=== PATIENT | male | born 1945 | race Caucasian/White ===

== ENCOUNTER → 2023-06-16 12:10 | Outpatient (REF) | payer MEDICARE, OTHER, SELFPAY ==
[2023-06-16 13:08] LABS: INR 2.15; PT 24.2 Sec (11.4-14.6)
== END ==
LOC: REG 12:10
PROVIDERS: ATTENDING PHYSICIAN Internal Medicine Cardiovascular Disease; FAMILY PHYSICIAN Family Medicine
DX: I48.19 Other persistent atrial fibrillation (principal)
CPT/HCPCS: 36415; 85610

== ENCOUNTER → 2023-07-14 11:57 | Outpatient (REF) | payer MEDICARE, OTHER, SELFPAY ==
[2023-07-14 13:35] LABS: INR 2.37; PT 26.2 Sec (11.4-14.6)
== END ==
LOC: REG 11:57
PROVIDERS: ATTENDING PHYSICIAN Internal Medicine Cardiovascular Disease; FAMILY PHYSICIAN Family Medicine
DX: I48.19 Other persistent atrial fibrillation (principal)
CPT/HCPCS: 36415; 85610

== ENCOUNTER → 2023-08-11 11:53 | Outpatient (REF) | payer MEDICARE, OTHER, SELFPAY ==
[2023-08-11 12:40] LABS: INR 2.68; PT 28.8 Sec (11.4-14.6)
== END ==
LOC: REG 11:53
PROVIDERS: ATTENDING PHYSICIAN Internal Medicine Cardiovascular Disease; FAMILY PHYSICIAN Family Medicine
DX: I48.19 Other persistent atrial fibrillation (principal)
CPT/HCPCS: 36415; 85610

== ENCOUNTER → 2023-08-25 12:34 | Outpatient (REF) | payer MEDICARE, OTHER, SELFPAY | LOC: RAD 12:34 | PROVIDERS: ATTENDING PHYSICIAN Internal Medicine Critical Care Medicine; FAMILY PHYSICIAN Family Medicine | DX: J44.9 Chronic obstructive pulmonary disease, unspecified (principal); R93.89 Abnormal findings on diagnostic imaging of other specified body structures; R91.8 Other nonspecific abnormal finding of lung field | CPT/HCPCS: 71250 ==

== ENCOUNTER → 2023-09-08 11:50 | Outpatient (REF) | payer MEDICARE, OTHER, SELFPAY ==
[2023-09-08 13:24] LABS: INR 2.32; PT 25.8 Sec (11.4-14.6)
== END ==
LOC: REG 11:50
PROVIDERS: ATTENDING PHYSICIAN Internal Medicine Cardiovascular Disease; FAMILY PHYSICIAN Family Medicine
DX: I48.21 Permanent atrial fibrillation (principal)
CPT/HCPCS: 36415; 85610

== ENCOUNTER → 2023-10-06 11:45 | Outpatient (REF) | payer MEDICARE, OTHER, SELFPAY ==
[2023-10-06 12:35] LABS: INR 2.67; PT 28.3 Sec (11.4-14.6)
== END ==
LOC: REG 11:45
PROVIDERS: ATTENDING PHYSICIAN Internal Medicine Cardiovascular Disease; FAMILY PHYSICIAN Family Medicine
DX: I48.19 Other persistent atrial fibrillation (principal)
CPT/HCPCS: 36415; 85610

== ENCOUNTER → 2023-10-19 10:50 | Outpatient (REF) | payer MEDICARE, OTHER, SELFPAY | LOC: RAD 10:50 | PROVIDERS: ATTENDING PHYSICIAN Surgery Vascular Surgery; FAMILY PHYSICIAN Family Medicine | DX: I71.43 Infrarenal abdominal aortic aneurysm, without rupture (principal) | CPT/HCPCS: 76770 ==

== ENCOUNTER → 2023-11-03 11:31 | Outpatient (REF) | payer MEDICARE, OTHER, SELFPAY ==
[2023-11-03 13:36] LABS: INR 2.31; PT 25.7 Sec (11.4-14.6)
== END ==
LOC: RAD 11:31
PROVIDERS: ATTENDING PHYSICIAN Internal Medicine Cardiovascular Disease; FAMILY PHYSICIAN Family Medicine
DX: I48.19 Other persistent atrial fibrillation (principal)
CPT/HCPCS: 36415; 85610

== ENCOUNTER → 2023-12-01 12:17 | Outpatient (REF) | payer MEDICARE, OTHER, SELFPAY ==
[2023-12-01 13:28] LABS: INR 1.97; PT 22.7 Sec (11.4-14.6)
== END ==
LOC: REG 12:17
PROVIDERS: ATTENDING PHYSICIAN Internal Medicine Cardiovascular Disease; FAMILY PHYSICIAN Family Medicine
DX: I48.19 Other persistent atrial fibrillation (principal)
CPT/HCPCS: 36415; 85610

== ENCOUNTER → 2023-12-29 11:47 | Outpatient (REF) | payer MEDICARE, OTHER, SELFPAY ==
[2023-12-29 12:34] LABS: INR 2.41; PT 26.6 Sec (11.4-14.6)
== END ==
LOC: REG 11:47
PROVIDERS: ATTENDING PHYSICIAN Internal Medicine Cardiovascular Disease; FAMILY PHYSICIAN Family Medicine
DX: I48.19 Other persistent atrial fibrillation (principal)
CPT/HCPCS: 36415; 85610

== ENCOUNTER → 2024-01-26 12:21 | Outpatient (REF) | payer MEDICARE, OTHER, SELFPAY ==
[2024-01-26 15:13] LABS: PT 31.5 Sec (11.4-14.6)
== END ==
LOC: REG 12:21
PROVIDERS: ATTENDING PHYSICIAN Internal Medicine Cardiovascular Disease; FAMILY PHYSICIAN Family Medicine
DX: I48.19 Other persistent atrial fibrillation (principal)
CPT/HCPCS: 36415; 85610

== ENCOUNTER → 2024-02-23 11:19 | Outpatient (REF) | payer MEDICARE, OTHER, SELFPAY ==
[2024-02-23 13:51] LABS: INR 2.83; PT 30.2 Sec (11.4-14.6)
== END ==
LOC: REG 11:19
PROVIDERS: ATTENDING PHYSICIAN Internal Medicine Cardiovascular Disease; FAMILY PHYSICIAN Family Medicine
DX: I48.19 Other persistent atrial fibrillation (principal)
CPT/HCPCS: 36415; 85610

== ENCOUNTER → 2024-03-22 11:57 | Outpatient (REF) | payer MEDICARE, OTHER, SELFPAY ==
[2024-03-22 13:23] LABS: INR 1.73; PT 20.7 Sec (11.4-14.6)
== END ==
LOC: REG 11:57
PROVIDERS: ATTENDING PHYSICIAN Internal Medicine Cardiovascular Disease; FAMILY PHYSICIAN Family Medicine
DX: I48.19 Other persistent atrial fibrillation (principal)
CPT/HCPCS: 36415; 85610

== ENCOUNTER → 2024-03-29 11:57 | Outpatient (REF) | payer MEDICARE, OTHER, SELFPAY ==
[2024-03-29 12:52] LABS: PT 23.2 Sec (11.4-14.6)
== END ==
LOC: REG 11:57
PROVIDERS: ATTENDING PHYSICIAN Internal Medicine Cardiovascular Disease
DX: I48.19 Other persistent atrial fibrillation (principal)
CPT/HCPCS: 36415; 85610

== ENCOUNTER → 2024-04-06 11:48 | Outpatient (REF) | payer MEDICARE, OTHER, SELFPAY ==
[2024-04-06 15:28] LABS: INR 2.83; PT 29.7 Sec (11.4-14.6)
== END ==
LOC: REG 11:48
PROVIDERS: ATTENDING PHYSICIAN Internal Medicine Cardiovascular Disease
DX: I48.91 Unspecified atrial fibrillation (principal)
CPT/HCPCS: 36415; 85610

== ENCOUNTER → 2024-04-12 12:26 | Outpatient (REF) | payer MEDICARE, OTHER, SELFPAY ==
[2024-04-12 14:04] LABS: INR 2.16; PT 24.6 Sec (11.4-14.6)
== END ==
LOC: REG 12:26
PROVIDERS: ATTENDING PHYSICIAN Internal Medicine Cardiovascular Disease; FAMILY PHYSICIAN Family Medicine
DX: I48.19 Other persistent atrial fibrillation (principal)
CPT/HCPCS: 36415; 85610

== ENCOUNTER → 2024-04-19 11:47 | Outpatient (REF) | payer MEDICARE, OTHER, SELFPAY ==
[2024-04-19 13:10] LABS: INR 2.46; PT 27.1 Sec (11.4-14.6)
== END ==
LOC: REG 11:47
PROVIDERS: ATTENDING PHYSICIAN Internal Medicine Cardiovascular Disease; FAMILY PHYSICIAN Physician Assistant Medical
DX: I48.19 Other persistent atrial fibrillation (principal)
CPT/HCPCS: 36415; 85610

== ENCOUNTER → 2024-05-08 09:21 | Outpatient (REF) | payer MEDICARE, OTHER, SELFPAY | LOC: DHVS 09:21 | PROVIDERS: ATTENDING PHYSICIAN Surgery Vascular Surgery; FAMILY PHYSICIAN Family Medicine | DX: I71.43 Infrarenal abdominal aortic aneurysm, without rupture (principal) | CPT/HCPCS: 76770 ==

== ENCOUNTER → 2024-05-17 11:16 | Outpatient (REF) | payer MEDICARE, OTHER, SELFPAY ==
[2024-05-17 12:46] LABS: INR 2.14; PT 24.4 Sec (11.4-14.6)
== END ==
LOC: REG 11:16
PROVIDERS: ATTENDING PHYSICIAN Internal Medicine Cardiovascular Disease; FAMILY PHYSICIAN Family Medicine
DX: I48.19 Other persistent atrial fibrillation (principal)
CPT/HCPCS: 36415; 85610

== ENCOUNTER → 2024-06-14 14:26 | Outpatient (REF) | payer MEDICARE, OTHER, SELFPAY ==
[2024-06-14 15:32] LABS: INR 2.45
== END ==
LOC: REG 14:26
PROVIDERS: ATTENDING PHYSICIAN Internal Medicine Cardiovascular Disease; FAMILY PHYSICIAN Family Medicine
DX: I48.21 Permanent atrial fibrillation (principal)
CPT/HCPCS: 36415; 85610

== ENCOUNTER → 2024-07-12 12:00 | Outpatient (REF) | payer MEDICARE, OTHER, SELFPAY ==
[2024-07-12 13:43] LABS: PT 26.6 Sec (11.4-14.6)
== END ==
LOC: REG 12:00
PROVIDERS: ATTENDING PHYSICIAN Internal Medicine Cardiovascular Disease; FAMILY PHYSICIAN Family Medicine
DX: I48.19 Other persistent atrial fibrillation (principal)
CPT/HCPCS: 36415; 85610

== ENCOUNTER → 2024-08-09 11:35 | Outpatient (REF) | payer MEDICARE, OTHER, SELFPAY ==
[2024-08-09 12:10] LABS: INR 2.12; PT 24.2 Sec (11.4-14.6)
== END ==
LOC: REG 11:35
PROVIDERS: ATTENDING PHYSICIAN Internal Medicine Cardiovascular Disease
DX: I48.21 Permanent atrial fibrillation (principal)
CPT/HCPCS: 36415; 85610

== ENCOUNTER → 2024-08-22 10:58 | Outpatient (REF) | payer MEDICARE, OTHER, SELFPAY | LOC: RAD 10:58 | PROVIDERS: ATTENDING PHYSICIAN Internal Medicine Critical Care Medicine; FAMILY PHYSICIAN Family Medicine | DX: R91.8 Other nonspecific abnormal finding of lung field (principal) | CPT/HCPCS: 71250 ==

== ENCOUNTER → 2024-09-06 11:45 | Outpatient (REF) | payer MEDICARE, OTHER, SELFPAY ==
[2024-09-06 12:31] LABS: INR 3.15; PT 32.7 Sec (11.4-14.6)
== END ==
LOC: REG 11:45
PROVIDERS: ATTENDING PHYSICIAN Internal Medicine Cardiovascular Disease; FAMILY PHYSICIAN Family Medicine
DX: I48.21 Permanent atrial fibrillation (principal)
CPT/HCPCS: 36415; 85610

== ENCOUNTER → 2024-09-13 11:37 | Outpatient (REF) | payer MEDICARE, OTHER, SELFPAY ==
[2024-09-13 13:27] LABS: INR 2.04; PT 23.5 Sec (11.4-14.6)
== END ==
LOC: REG 11:37
PROVIDERS: ATTENDING PHYSICIAN Internal Medicine Cardiovascular Disease
DX: I48.21 Permanent atrial fibrillation (principal)
CPT/HCPCS: 36415; 85610

== ENCOUNTER → 2024-10-11 11:47 | Outpatient (REF) | payer MEDICARE, OTHER, SELFPAY ==
[2024-10-11 13:03] LABS: INR 2.08; PT 23.8 Sec (11.4-14.6)
== END ==
LOC: REG 11:47
PROVIDERS: ATTENDING PHYSICIAN Internal Medicine Cardiovascular Disease; FAMILY PHYSICIAN Family Medicine
DX: I48.21 Permanent atrial fibrillation (principal)
CPT/HCPCS: 36415; 85610

== ENCOUNTER → 2024-11-08 11:34 | Outpatient (REF) | payer MEDICARE, OTHER, SELFPAY ==
[2024-11-08 13:31] LABS: INR 1.87; PT 22.1 Sec (11.4-14.6)
== END ==
LOC: REG 11:34
PROVIDERS: ATTENDING PHYSICIAN Internal Medicine Cardiovascular Disease
DX: I48.21 Permanent atrial fibrillation (principal)
CPT/HCPCS: 36415; 85610

== ENCOUNTER → 2024-11-15 11:50 | Outpatient (REF) | payer MEDICARE, OTHER, SELFPAY ==
[2024-11-15 12:45] LABS: INR 1.93; PT 22.6 Sec (11.4-14.6)
== END ==
LOC: REG 11:50
PROVIDERS: ATTENDING PHYSICIAN Internal Medicine Cardiovascular Disease; FAMILY PHYSICIAN Family Medicine
DX: I48.21 Permanent atrial fibrillation (principal)
CPT/HCPCS: 36415; 85610

== ENCOUNTER → 2024-11-21 09:45 | Outpatient (REF) | payer MEDICARE, OTHER, SELFPAY | LOC: RAD 09:45 | PROVIDERS: ATTENDING PHYSICIAN Registered Nurse; FAMILY PHYSICIAN Family Medicine | DX: I71.43 Infrarenal abdominal aortic aneurysm, without rupture (principal) | CPT/HCPCS: 76770 ==

== ENCOUNTER → 2024-11-22 11:21 | Outpatient (REF) | payer MEDICARE, OTHER, SELFPAY ==
[2024-11-22 12:21] LABS: INR 1.62; PT 19.8 Sec (11.4-14.6)
== END ==
LOC: REG 11:21
PROVIDERS: ATTENDING PHYSICIAN Internal Medicine Cardiovascular Disease; FAMILY PHYSICIAN Physician Assistant Medical
DX: I48.21 Permanent atrial fibrillation (principal)
CPT/HCPCS: 36415; 85610

== ENCOUNTER → 2024-11-26 11:36 | Outpatient (REF) | payer MEDICARE, OTHER, SELFPAY ==
[2024-11-26 12:23] LABS: INR 2.59; PT 27.8 Sec (11.4-14.6)
== END ==
LOC: REG 11:36
PROVIDERS: ATTENDING PHYSICIAN Internal Medicine Cardiovascular Disease; FAMILY PHYSICIAN Family Medicine
DX: I48.21 Permanent atrial fibrillation (principal)
CPT/HCPCS: 36415; 85610

== ENCOUNTER → 2024-12-03 11:25 | Outpatient (REF) | payer MEDICARE, OTHER, SELFPAY ==
[2024-12-03 12:44] LABS: INR 2.71; PT 29.2 Sec (11.4-14.6)
== END ==
LOC: REG 11:25
PROVIDERS: ATTENDING PHYSICIAN Internal Medicine Cardiovascular Disease
DX: I48.21 Permanent atrial fibrillation (principal)
CPT/HCPCS: 36415; 85610

== ENCOUNTER → 2024-12-10 11:39 | Outpatient (REF) | payer MEDICARE, OTHER, SELFPAY ==
[2024-12-10 12:35] LABS: INR 2.65; PT 28.2 Sec (11.4-14.6)
== END ==
LOC: REG 11:39
PROVIDERS: ATTENDING PHYSICIAN Internal Medicine Cardiovascular Disease; FAMILY PHYSICIAN Family Medicine
DX: I48.21 Permanent atrial fibrillation (principal)
CPT/HCPCS: 36415; 85610

== ENCOUNTER → 2024-12-18 11:32 | Outpatient (REF) | payer MEDICARE, OTHER, SELFPAY ==
[2024-12-18 12:45] LABS: INR 2.33; PT 25.6 Sec (11.4-14.6)
== END ==
LOC: REG 11:32
PROVIDERS: ATTENDING PHYSICIAN Internal Medicine Cardiovascular Disease; FAMILY PHYSICIAN Physician Assistant Medical
DX: I48.21 Permanent atrial fibrillation (principal)
CPT/HCPCS: 36415; 85610

== ENCOUNTER → 2025-01-15 11:32 | Outpatient (REF) | payer MEDICARE, OTHER, SELFPAY ==
[2025-01-15 12:43] LABS: INR 2.48; PT 26.9 Sec (11.4-14.6)
== END ==
LOC: REG 11:32
PROVIDERS: ATTENDING PHYSICIAN Internal Medicine Cardiovascular Disease; FAMILY PHYSICIAN Family Medicine
DX: I48.21 Permanent atrial fibrillation (principal)
CPT/HCPCS: 36415; 85610

== ENCOUNTER → 2025-02-12 11:15 | Outpatient (REF) | payer MEDICARE, OTHER, SELFPAY ==
[2025-02-12 12:04] LABS: INR 3.57; PT 35.4 Sec (11.4-14.6)
== END ==
LOC: REG 11:15
PROVIDERS: ATTENDING PHYSICIAN Internal Medicine Cardiovascular Disease; FAMILY PHYSICIAN Family Medicine
DX: I48.21 Permanent atrial fibrillation (principal)
CPT/HCPCS: 36415; 85610

== ENCOUNTER → 2025-02-15 11:31 | Outpatient (REF) | payer MEDICARE, OTHER, SELFPAY ==
[2025-02-15 12:37] LABS: INR 2.78; PT 29.3 Sec (11.4-14.6)
== END ==
LOC: REG 11:31
PROVIDERS: ATTENDING PHYSICIAN Internal Medicine Cardiovascular Disease; FAMILY PHYSICIAN Family Medicine
DX: I48.21 Permanent atrial fibrillation (principal)
CPT/HCPCS: 36415; 85610

== ENCOUNTER → 2025-02-25 11:34 | Outpatient (REF) | payer MEDICARE, OTHER, SELFPAY ==
[2025-02-25 12:14] LABS: INR 2.20; PT 24.5 Sec (11.4-14.6)
== END ==
LOC: REG 11:34
PROVIDERS: ATTENDING PHYSICIAN Internal Medicine Cardiovascular Disease; FAMILY PHYSICIAN Family Medicine
DX: I48.21 Permanent atrial fibrillation (principal)
CPT/HCPCS: 36415; 85610

== ENCOUNTER → 2025-03-04 11:44 | Outpatient (REF) | payer MEDICARE, OTHER, SELFPAY ==
[2025-03-04 12:27] LABS: INR 2.55; PT 27.4 Sec (11.4-14.6)
== END ==
LOC: REG 11:44
PROVIDERS: ATTENDING PHYSICIAN Internal Medicine Cardiovascular Disease; FAMILY PHYSICIAN Family Medicine
DX: I48.21 Permanent atrial fibrillation (principal)
CPT/HCPCS: 36415; 85610

== ENCOUNTER → 2025-03-11 11:17 | Outpatient (REF) | payer MEDICARE, OTHER, SELFPAY ==
[2025-03-11 12:36] LABS: INR 2.30; PT 25.4 Sec (11.4-14.6)
== END ==
LOC: REG 11:17
PROVIDERS: ATTENDING PHYSICIAN Internal Medicine Cardiovascular Disease; FAMILY PHYSICIAN Internal Medicine Cardiovascular Disease
DX: I48.21 Permanent atrial fibrillation (principal)
CPT/HCPCS: 36415; 85610

== ENCOUNTER → 2025-04-08 11:31 | Outpatient (REF) | payer MEDICARE, OTHER, SELFPAY ==
[2025-04-08 12:57] LABS: INR 2.53; PT 27.4 Sec (11.4-14.6)
== END ==
LOC: REG 11:31
PROVIDERS: ATTENDING PHYSICIAN Internal Medicine Cardiovascular Disease; FAMILY PHYSICIAN Family Medicine
DX: I48.21 Permanent atrial fibrillation (principal)
CPT/HCPCS: 36415; 85610

== ENCOUNTER → 2025-05-06 13:33 | Outpatient (REF) | payer MEDICARE, OTHER, SELFPAY ==
[2025-05-06 14:51] LABS: INR 2.84; PT 30.0 Sec (11.4-14.6)
== END ==
LOC: REG 13:33
PROVIDERS: ATTENDING PHYSICIAN Internal Medicine Cardiovascular Disease; FAMILY PHYSICIAN Family Medicine
DX: I48.21 Permanent atrial fibrillation (principal)
CPT/HCPCS: 36415; 85610